=== PATIENT | male | born 1950 | race Caucasian/White ===

== ENCOUNTER 2016-09-08 11:02 | Inpatient (IN) | payer BC ==
[2016-09-07 10:30] VITALS: BMI 29.5
[~2016-09-08 11:02] MED LIST: LACTATED RINGERS 1,000 ML IV SCH
[2016-09-08] MEDS ORDERED: ALBUTEROL NEBULIZED 2.5 MG/3 ML INHALATION STA (11:30)
[2016-09-08] MEDS: LIDOCAINE 1% 20 ML VIAL (10MG/ML) FOR IV START INTRADERMA PRN (11:37)
[2016-09-08] MEDS ORDERED: LIDOCAINE 2% (PF) 20 MG/ML 10ML INHALATION ONE (11:45)
[2016-09-08] MEDS ORDERED: ATROPINE SULFATE 0.4 MG/ML 1 ML VIAL IM ONE (12:00)
[2016-09-08] MEDS ORDERED: PROPOFOL 10 MG/ML 20 ML VIAL IV ONE (12:04)
[2016-09-08] MEDS ORDERED: fentaNYL (PF) 50 MCG/ML 2 ML AMP ONE (12:04)
[2016-09-08] MEDS ORDERED: ESMOLOL 100 MG/10 ML VIAL ONE (12:04)
[2016-09-08] MEDS ORDERED: MIDAZOLAM 2 MG/2 ML VIAL ONE (12:04)
[2016-09-08] MEDS ORDERED: KETAMINE 10 MG/ML 20 ML VIAL ONE (12:04)
[2016-09-08] MEDS ORDERED: LIDOCAINE 1% INJ 10MG/ML (20 ML MDV) ONE (12:04)
[2016-09-08] MEDS ORDERED: LABETALOL 5 MG/ML VIAL MDV ONE (12:04)
[2016-09-08] MEDS ORDERED: LIDOCAINE 2% INJ 20 MG/ML INTRATRACH ONE (12:26)
[2016-09-08] MEDS: METOPROLOL TARTRATE 5 MG/5 ML VIAL IVP ONE ×2 (12:50→12:52)
[2016-09-08] MEDS: METOPROLOL TARTRATE 5 MG/5 ML VIAL IVP SCH ×5 (13:00→15:11)
--- NOTE | 2016-09-08 13:11 | XR ---
EXAMINATION TYPE: XR chest 1V portable DATE OF EXAM: 09/08/2016 1:03 PM Comparison: 07/08/2012 Clinical History: 65-year-old male status post left upper lobe bronchoscopic biopsy. Findings: Heart is mildly enlarged with mild elongation of the thoracic aorta. Pulmonary vasculature within nor mal limits. There is some patchy peripheral left basilar opacity that could represent atelectasis. No appreciable pneumothorax. Impression: 1. Cardiomegaly. 2. Some patchy left basilar atelectasis or early infiltrate. 3. No appreciable pneumothorax.
[2016-09-08] MEDS ORDERED: METOPROLOL TARTRATE 5 MG/5 ML VIAL IVP ONE (13:16)
[2016-09-08] MEDS ORDERED: ALBUTEROL NEBULIZED 2.5 MG/3 ML INHALATION PRN (14:47)
--- NOTE | 2016-09-08 14:47 | P.CRDCN ---
History of Present Illness Consult date: 09/08/16 Requesting physician: Margy Loyd Consult reason: atrial fibrillation Chief complaint: Atrial fibrillation History of present illness: This is a pleasant 65-year-old gentleman who follows with [facility] as his primary doctor, he has a history of hypertension, hyperlipidemia , nondiabetic, prior SVT, nicotine dependence, COPD, he was initially admitted as an outpatient to undergo a bronchoscopy with biopsy of a lung mass. Following the procedure patient was noted to go into atrial fibrillation with a rapid ventricular response. He was given IV beta candy, continue to be in A. fib with a heart rate in the 140 range. For this reason a cardiology consultation was requested. EKG, showed atrial fibrillation with rapid ventricular response. Blood pressure 120/60. Patient's home medications included Flomax 2 tablets daily, Zocor 40 mg daily, metoprolol tartrate 50 mg 1 tablet by mouth twice a day, Nexium, Symbicort, and albuterol. He states that he did not take his metoprolol tartrate at this morning as he was nothing by mouth for his procedure. Past Medical History Past Medical History: Cancer, COPD, GERD/Reflux, Hyperlipidemia, Pneumonia, Prostate Disorder Additional Past Medical History / Comment(s): hx:irregular heart rate, rt kidney only, lt kidney removed d/t cancer History of Any Multi-Drug Resistant Organisms: None Reported Additional Past Surgical History / Comment(s): skin graphs rt arm, lt kidney removed Past Anesthesia/Blood Transfusion Reactions: No Reported Reaction Past Psychological History: No Psychological Hx Reported Smoking Status: Former smoker Past Alcohol Use History: Rare Additional Past Alcohol Use History / Comment(s): smoker 30-35 years quit smoking 5 years ago 1ppd Past Drug Use History: None Reported - Past Family History Mother Additional Family Medical History / Comment(s): blood clots Father Family Medical History: Cancer Additional Family Medical History / Comment(s): lung cancer Sister(s) Family Medical History: Cancer Additional Family Medical History / Comment(s): lung cancer Medications and Allergies Home Medications Medication Instructions Recorded Confirmed Type Albuterol Sulfate [Proair Hfa] 2 puff INHALATION Q6H PRN 09/07/16 09/07/16 History Budesonide-Formot 160-4.5 Mcg 2 puff INHALATION Q6H 09/07/16 09/07/16 History [Symbicort 160-4.5 Mcg Inhaler] Esomeprazole Magnesium [NexIUM] 40 mg PO DAILY 09/07/16 09/08/16 History Metoprolol Tartrate [Lopressor] 50 mg PO BID 09/07/16 09/08/16 History Simvastatin [Zocor] 40 mg PO DAILY 09/07/16 09/08/16 History Tamsulosin HCl [Flomax] 2 tab PO DAILY 09/07/16 09/08/16 History Allergies Allergy/AdvReac Type Severity Reaction Status Date / Time No Known Allergies Allergy Verified 09/07/16 10:06 Physical Exam Vitals: Vital Signs Temp Pulse Pulse Resp BP Pulse Ox 09/08/16 14:00 140 H 16 139/70 98 09/08/16 13:45 145 H 16 115/61 98 09/08/16 13:30 137 H 20 136/87 98 09/08/16 13:15 140 H 20 136/87 97 09/08/16 13:00 135 H 20 137/111 97 09/08/16 12:39 97.7 F 136 H 20 137/78 98 09/08/16 11:58 60 09/08/16 11:45 56 L 09/08/16 11:20 97.2 F L 55 L 16 144/83 99 Intake and Output 09/07/16 09/08/16 09/08/16 22:59 06:59 14:59 Intake Total 1000 Balance 1000 Intake: IV 1000 PHYSICAL EXAMINATION: HEENT: Head is atraumatic, normocephalic. Pupils equal, round. Neck is supple. There is no elevated jugular venous pressure. HEART EXAMINATION: S1 and S2 irregular irregular a systolic murmur is heard. CHEST EXAMINATION: Lungs are clear to auscultation and precussion. No chest wall tenderness is noted on palpation or with deep breathing. ABDOMEN: Soft, nontender. Bowel sounds are heard. No organomegaly noted. EXTREMITIES: 2+ peripheral pulses with no evidence of peripheral edema and no calf tenderness noted. NEUROLOGIC patient is awake, alert and oriented -3. . Results Current Medications Generic Name Dose Route Start Last Admin Trade Name Freq PRN Reason Stop Dose Admin Lactated Ringer's 1,000 mls @ 20 mls/hr 09/08/16 07:02 09/08/16 11:35 Lactated Ringers IV 1,000 mls .Q24H [facility] Administration Lidocaine HCl 0.1 ml 09/08/16 07:02 09/08/16 11:37 .Xylocaine 1% Inj (10mg/Ml) For Iv Start INTRADERMA 0.1 ml PER PROTOCOL PRN Administration IV Start Intake and Output 09/07/16 09/08/16 09/08/16 22:59 06:59 14:59 Intake Total 1000 Balance 1000 Intake: IV 1000 EKG Interpretations (text) EKG shows atrial fibrillation with a rapid ventricular response Assessment and Plan Plan: Assessment and plan #1 atrial fibrillation with rapid ventricular response, new onset. #2 hyperlipidemia #3 hypertension #4 COPD #5 nicotine dependence Plan We will obtain an echocardiogram with Doppler study. Check free T4 and TSH. We will also start the patient on IV Cardizem drip along with IV heparin. It was explained to the patient and his who is a registered nurse that he may require anticoagulation for stroke prevention. Further recommendations will follow. DNP note has been reviewed, I agree with a documented findings and plan of care. Patient was seen and examined.
[2016-09-08] MEDS ORDERED: HEPARIN SODIUM,PORCINE 5,000 UNIT/ML 1 ML VIAL IV PRN (15:06)
[2016-09-08] MEDS ORDERED: SODIUM CHLORIDE 0.9% 500 ML IV ONE (15:09)
[2016-09-08] MEDS ORDERED: DILTIAZEM 125 MG in SODIUM CHLORIDE 0.9% 100 ML IV SCH (15:30)
[2016-09-08 15:38] LABS: Basophils # (A) 0.1 k/uL (0-0.2); Basophils % (A) 0 %; CH 29.4; CHCM 32.6; Eosinophils % (A) 0 %; HCT 45.5 % (39.0-53.0); HDW 2.41; HGB 14.3 gm/dL (13.0-17.5); Luc # (Auto) 0.12; Luc % (Auto) 1; Lymphocytes # (A) 2.8 k/uL (1.0-4.8); Lymphocytes % (A) 19 %; MCH 28.4 pg (25.0-35.0); MCHC 31.3 g/dL (31.0-37.0); MCV 90.6 fL (80.0-100.0); Mean Platelet Volume 8.4; Monocytes # (A) 0.9 k/uL (0-1.0); Monocytes % (A) 6 %; Neutrophils % (A) 74 %; RBC 5.02 m/uL (4.30-5.90); RDW 13.6 % (11.5-15.5); WBC 14.9 k/uL (3.8-10.6); WBC (Perox) 15.18
[2016-09-08] MEDS ORDERED: HEPARIN SODIUM,PORCINE/D5W PMX 25,000 UNIT in DEXTROSE/WATER 1 500ML.BAG IV SCH (15:45)
[2016-09-08] MEDS ORDERED: HEPARIN SODIUM,PORCINE 5,000 UNIT/ML 1 ML VIAL IV ONE (15:45)
[2016-09-08 15:51] LABS: Prothrombin Time 10.3 sec (9.0-12.0)
[2016-09-08] MEDS: SODIUM CHLORIDE 0.9% 1,000 ML IV SCH (15:52)
[2016-09-08 15:58] LABS: Partial Thromboplastin Time 19.3 sec (22.0-30.0)
[2016-09-08] MEDS ORDERED: DILTIAZEM 5 MG/ML 5 ML VIAL IVP STA (16:11)
[2016-09-08 19:40] LABS: RBC, Body Fluid 909000 /uL
[2016-09-08] MEDS: SYMBICORT 160-4.5 MCG INHALER INHALATION SCH (20:09)
[2016-09-08] MEDS: ATORVASTATIN 20 MG TAB PO SCH (21:01)
[2016-09-08] MEDS: METOPROLOL TARTRATE 50 MG TAB PO SCH (21:01)
--- NOTE | 2016-09-08 21:54 | PCN ---
DATE OF PROCEDURE: PROCEDURE PERFORMED: Bronchoscopy, airway examination, endobronchial biopsies left upper lobe, brushes left upper lobe and pull cytology, left upper lobe. PREOPERATIVE DIAGNOSIS: Lung cancer. POSTOPERATIVE DIAGNOSIS: Lung cancer. There was informed consent. There was universal timeout. The WASTE MANAGEMENT SPECIALIST provided IV conscious sedation. After the patient was adequately sedated and being fully monitored, the bronchoscope was inserted through the right nostril. It passed through the right nasopharynx into the oropharynx. The hypopharyngeal structures, including anterior commissure, true cords, false cords, arytenoids, piriform sinuses, right and left vallecula and epiglottis all appeared normal. After topicalization, bronchoscope was pushed through the glottic opening into the trachea. Trachea itself appeared normal. Tracheal raza was sharp. The right upper lobe and its 3 segments, the right middle lobe and its 2 segments, the right lower lobe and its 5 segments were all normal after topicalization. There were no endobronchial masses or tumors. The mucosa appeared normal. On the left side, there was a mass noted partially obstructing the left upper lobe entrance. This is where the sampling was done. The left lower lobe looked normal. The mucosa in this area that was macerated. There was some erythema and hyperemia. It bled easily. The tumor itself was very bloody and once we did brushes and did some biopsies, it did bleed significantly. The blood though was stopped before the bronchoscope was removed. We did brushes in this area. We did three endobronchial biopsies in this area. We did pool cytology in this area. I was trying to get some additional biopsies but with the bleeding, the vision of the lesion became difficult and I had to stop doing biopsies in this area. If by some chance we do not get a diagnosis, we will end up taking him to the operating room and doing this under general anesthesia. The patient was stable throughout the procedure. I ensured that there was hemostasis before the bronchoscope was withdrawn. The patient will be recovered in phase one. No additional recommendations are made.
[2016-09-09] MEDS: PANTOPRAZOLE 40 MG TABLET PO SCH (06:38)
[2016-09-09 06:50] LABS: Basophils % (A) 0 %; CH 29.5; CHCM 33.4; Eosinophils # (A) 0.1 k/uL (0-0.7); Eosinophils % (A) 1 %; HCT 44.2 % (39.0-53.0); HDW 2.37; HGB 14.6 gm/dL (13.0-17.5); Luc # (Auto) 0.16; Luc % (Auto) 1; Lymphocytes # (A) 3.7 k/uL (1.0-4.8); Lymphocytes % (A) 29 %; MCH 29.3 pg (25.0-35.0); MCV 88.8 fL (80.0-100.0); Mean Platelet Volume 8.1; Monocytes # (A) 0.8 k/uL (0-1.0); Monocytes % (A) 6 %; Neutrophils # (A) 7.7 k/uL (1.3-7.7); Neutrophils % (A) 62 %; RBC 4.98 m/uL (4.30-5.90); RDW 13.7 % (11.5-15.5); WBC 12.5 k/uL (3.8-10.6); WBC (Perox) 12.09
[2016-09-09] MEDS: SYMBICORT 160-4.5 MCG INHALER INHALATION SCH ×2 (08:08→19:46)
[2016-09-09 08:41] LABS: Anion Gap 9 mmol/L; Blood Urea Nitrogen 24 mg/dL (9-20); Calcium 9.1 mg/dL (8.4-10.2); Carbon Dioxide 22 mmol/L (22-30); Chloride 109 mmol/L (98-107); Glucose 93 mg/dL (74-99); Non-African American GFR(MDRD) 59 (>60 ml/min/1.73 sqM); Potassium 4.3 mmol/L (3.5-5.1); Sodium 140 mmol/L (137-145)
[2016-09-09] MEDS: TAMSULOSIN 0.4 MG CAP.ER.24H PO SCH (09:04)
[2016-09-09] MEDS: METOPROLOL TARTRATE 50 MG TAB PO SCH ×3 (09:04→21:29)
--- NOTE | 2016-09-09 10:19 | ECHOF ---
Referral Reason:afib MEASUREMENTS -------- HEIGHT: 188.0 cm WEIGHT: 104.3 kg BP: 139/70 RVIDd: 3.2 cm (< 3.3) IVSd: 1.3 cm (0.6 - 1.1) LVIDd: 4.6 cm (3.9 - 5.3) LVPWd: 1.2 cm (0.6 - 1.1) IVSs: 1.6 cm LVIDs: 3.3 cm LVPWs: 1.4 cm LA Diam: 3.3 cm (2.7 - 3.8) LAESV Index (A-L): 18.32 ml/m Ao Diam: 3.9 cm (2.0 - 3.7) AV Cusp: 2.4 cm (1.5 - 2.6) LA Diam: 3.2 cm (2.7 - 3.8) MV EXCURSION: 22.646 mm (> 18.000) MV EF SLOPE: 99 mm/s (70 - 150) EPSS: 0.5 cm RAP: 5.00 mmHg RVSP: 33.20 mmHg FINDINGS -------- Atrial fibrillation. This was a technically difficult study with suboptimal views. The left ventricular size is normal. There is mild concentric left ventricular hypertrophy. Overall left ventricular systolic function is normal with, an EF between 60 - 65 %. The right ventricle is normal in size and function. The left atrium is normal in size. Normal LA size by volume 22+/-6 ml/m2. The right atrium is normal in size. 1.5mg of Definity was utilized for enhancement of images Aortic valve is trileaflet and is mildly thickened. Normal appearing mitral valve. No mitral regurgitation. Mild tricuspid regurgitation present. Right ventricular systolic pressure is normal at < 35 mmHg. The pulmonic valve was not well visualized. The aortic root is dilated measuring 3.9cm. There is no pericardial effusion. CONCLUSIONS -------- 1. Atrial fibrillation. 2. Aortic valve is trileaflet and is mildly thickened. 3. Normal appearing mitral valve. 4. No mitral regurgitation. 5. Mild tricuspid regurgitation present. 6. Right ventricular systolic pressure is normal at < 35 mmHg. 7. The pulmonic valve was not well visualized. 8. The aortic root is dilated measuring 3.9cm. 9. There is no pericardial effusion. 10. This was a technically difficult study with suboptimal views. 11. The left ventricular size is normal. 12. There is mild concentric left ventricular hypertrophy. 13. Overall left ventricular systolic function is normal with, an EF between 60 - 65 %. 14. The right ventricle is normal in size and function. 15. Normal LA size by volume 22+/-6 ml/m2. 16. The right atrium is normal in size. 17. 1.5mg of Definity was utilized for enhancement of images PAPER TUBE CUTTER: Stephenie Dow RDCS
[2016-09-09] MEDS: APIXABAN 5 MG TAB PO SCH ×2 (12:50→21:29)
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
--- NOTE | 2016-09-09 14:35 | P.PN ---
Subjective Principal diagnosis: A. fib This is a pleasant 65-year-old gentleman who follows with Iona as his primary doctor, he has a history of hypertension, hyperlipidemia , nondiabetic, prior SVT, nicotine dependence, COPD, he was initially admitted as an outpatient to undergo a bronchoscopy with biopsy of a lung mass. Following the procedure patient was noted to go into atrial fibrillation with a rapid ventricular response. He was given IV beta candy, continue to be in A. fib with a heart rate in the 140 range. For this reason a cardiology consultation was requested. EKG, showed atrial fibrillation with rapid ventricular response. Patient was initiated on IV Cardizem and IV heparin yesterday. This morning continues to be in atrial fibrillation with a controlled ventricular response on 5 of Cardizem IV. Echo with Doppler study was performed which revealed an ejection fraction of 60-65%. IV Cardizem will be discontinued, patient's beta candy dose will be increased to 3 times a day. IV heparin will also be discontinued and patient will be started on Eliquis 5 mg one tablet by mouth twice a day. Objective - Vital Signs Vital signs: Vital Signs Temp 98.4 F 09/09/16 08:00 Pulse 84 09/09/16 08:00 Resp 18 09/09/16 08:00 BP 100/64 09/09/16 08:00 Pulse Ox 95 09/09/16 08:00 Intake & Output 09/08/16 09/09/16 09/09/16 18:59 06:59 18:59 Intake Total 1736 639.194 Output Total 680 Balance 1736 -40.806 Weight 102.5 kg Intake: IV 1500 510 Diltiazem 125 mg In 50 Sodium Chloride 0.9% 100 ml @ 5 MG/HR 5 mls/hr IV .Q24H [facility] Rx#:[id number] Heparin Sodium,Porcine/ 260 D5w Pmx 25,000 unit In Dextrose/Water 1 500ml. bag @ 9.6 UNITS/KG/HR 20. 03 mls/hr IV .Q24H [facility] Rx #:[id number] Sodium Chloride 0.9% 1, 200 000 ml @ 20 mls/hr IV . Q24H [facility] Rx#:[id number] Sodium Chloride 0.9% 500 500 ml @ 999 mls/hr IV .Q31M [facility] Rx#:[id number] Intake, IV Titration 129.194 Amount Heparin Sodium,Porcine/ 129.194 D5w Pmx 25,000 unit In Dextrose/Water 1 500ml. bag @ 9.6 UNITS/KG/HR 20. 03 mls/hr IV .Q24H [facility] Rx #:[id number] Oral 236 Output: Urine 680 Other: Voiding Method Toilet Toilet Toilet # Voids 1 1 - Exam PHYSICAL EXAMINATION: HEENT: Head is atraumatic, normocephalic. Pupils equal, round. Neck is supple. There is no elevated jugular venous pressure. HEART EXAMINATION: S1 and S2 irregular irregular a systolic murmur is heard. CHEST EXAMINATION: Lungs are clear to auscultation and precussion. No chest wall tenderness is noted on palpation or with deep breathing. ABDOMEN: Soft, nontender. Bowel sounds are heard. No organomegaly noted. EXTREMITIES: 2+ peripheral pulses with no evidence of peripheral edema and no calf tenderness noted. NEUROLOGIC patient is awake, alert and oriented -3. . - Labs CBC & Chem 7: 09/09/16 06:29 09/09/16 06:29 Labs: Abnormal Lab Results - Last 24 Hours (Table) 09/08/16 09/08/16 09/09/16 Range/Units 15:23 15:23 06:29 WBC 14.9 H 12.5 H (3.8-10.6) k/uL Neutrophils # 11.0 H (1.3-7.7) k/uL APTT 19.3 L (22.0-30.0) sec Chloride (98-107) mmol/L BUN (9-20) mg/dL 09/09/16 09/09/16 Range/Units 06:29 06:29 WBC (3.8-10.6) k/uL Neutrophils # (1.3-7.7) k/uL APTT 43.0 H (22.0-30.0) sec Chloride 109 H (98-107) mmol/L BUN 24 H (9-20) mg/dL Assessment and Plan Plan: Assessment and plan #1 atrial fibrillation with rapid ventricular response, new onset. 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 #7 right adrenal mass #8 prior left renal cancer status post nephrectomy. #9 history of SVT. Plan We will discontinue the IV Cardizem, increase her beta candy dose to 3 times a day. Discontinue IV heparin and start the patient on Eliquis 5 mg one tablet by mouth twice a day. Once patient is discharged home from the hospital follow- up appointment will be made with Dr. Cueva in the office. DNP note has been reviewed, I agree with a documented findings and plan of care. Patient was seen and examined.
[2016-09-09] MEDS: SODIUM CHLORIDE 0.9% 1,000 ML IV SCH (20:32)
[2016-09-09] MEDS: ATORVASTATIN 20 MG TAB PO SCH (21:29)
[2016-09-10 06:40] LABS: Basophils # (A) 0.1 k/uL (0-0.2); Basophils % (A) 0 %; CH 29.4; CHCM 33.2; Eosinophils # (A) 0.1 k/uL (0-0.7); Eosinophils % (A) 1 %; HCT 48.3 % (39.0-53.0); HDW 2.28; HGB 15.6 gm/dL (13.0-17.5); Luc # (Auto) 0.15; Luc % (Auto) 1; Lymphocytes % (A) 18 %; MCH 28.7 pg (25.0-35.0); MCHC 32.3 g/dL (31.0-37.0); MCV 88.9 fL (80.0-100.0); Mean Platelet Volume 7.4; Monocytes # (A) 0.9 k/uL (0-1.0); Monocytes % (A) 8 %; Neutrophils # (A) 8.2 k/uL (1.3-7.7); Neutrophils % (A) 72 %; RBC 5.43 m/uL (4.30-5.90); RDW 13.4 % (11.5-15.5); WBC 11.4 k/uL (3.8-10.6); WBC (Perox) 11.69
[2016-09-10] MEDS: PANTOPRAZOLE 40 MG TABLET PO SCH (06:40)
[2016-09-10] MEDS: DILTIAZEM 125 MG in SODIUM CHLORIDE 0.9% 100 ML IV SCH ×2 (08:34→21:19)
[2016-09-10] MEDS: METOPROLOL TARTRATE 50 MG TAB PO SCH ×3 (08:34→20:42)
[2016-09-10] MEDS: SYMBICORT 160-4.5 MCG INHALER INHALATION SCH ×2 (08:38→20:10)
[2016-09-10] MEDS: TAMSULOSIN 0.4 MG CAP.ER.24H PO SCH (08:41)
[2016-09-10] MEDS: APIXABAN 5 MG TAB PO SCH ×2 (08:41→20:42)
--- NOTE | 2016-09-10 13:32 | P.PN ---
Subjective Principal diagnosis: Acute atrial fibrillation with RVR This is a very pleasant 65-year-old gentleman who follows with Dr. Monson is his primary care physician. He has a history of hyperlipidemia, gastroesophageal reflux, chronic obstructive pulmonary disease with a previous history of chronic nicotine addiction for 30-35 years however quit 5 years ago, renal cancer status post left nephrectomy. He was recently seen by Dr. Connolly while an inpatient at [facility] after presenting there for shortness of breath, cough and congestion. Unfortunately Scan revealed suspected bronchogenic carcinoma as well as a right adrenal mass. Interventional radiology had declined to perform an FNA of the right adrenal mass and the patient was subsequently discharged. He presented here yesterday to undergo bronchoscopy with biopsies of the left upper lobe by Dr. Connolly which was completed. Postoperative chest x-ray revealed evidence of cardiomegaly and some patchy left basilar atelectasis. No appreciable pneumothorax. After the procedure the patient developed atrial fibrillation with a rapid ventricular response and was subsequently admitted here as an inpatient. He has been seen and evaluated by cardiology. He was maintained on both Cardizem and heparin drips. Two-dimensional echocardiogram did not reveal impaired left ventricular systolic function, EF 55-60%. No significant right heart strain. Thyroid screen negative. The patient is seen today on the selective care unit in consultation. He is awake and alert in no acute distress. He denies any shortness of breath, cough or congestion. No hemoptysis. No chest pain, palpitations lightheadedness or dizziness. He is actually anxious to go home. Patient was reevaluated today on 09/10/2016, he is doing well, his atrial fibrillation is better controlled, however remains on Cardizem. And he will be switched to oral medication. Patient is not yet cleared for discharge by cardiology, his pathology report came back nondiagnostic, and I believe Dr. Connolly is planning to schedule the patient for another bronchoscopy in the operating room with general anesthesia. Mostly because he had significant bleeding when he had the last biopsy. We'll try to schedule that to be done sometime mid next week and Dr. Connolly will be weight and balance control agent next week. Clinically the patient is feeling well, and he is hoping he could be discharged home today or tomorrow. Labs were reviewed including a normal CBC and relatively normal electrolytes. Creatinine is 1.24. Objective - Vital Signs Vital signs: Vital Signs Temp 97.5 F L 01/20/17 11:48 Pulse 77 09/10/16 11:48 Resp 18 09/10/16 11:48 BP 102/71 09/10/16 11:48 Pulse Ox 97 09/10/16 11:48 Intake & Output 09/09/16 09/10/16 09/10/16 18:59 06:59 18:59 Intake Total 1275 600 298 Output Total 600 Balance 675 600 298 Weight 101.5 kg Intake: IV 455 Diltiazem 125 mg In 35 Sodium Chloride 0.9% 100 ml @ 5 MG/HR 5 mls/hr IV .Q24H [facility] Rx#:[id number] Heparin Sodium,Porcine/ 140 D5w Pmx 25,000 unit In Dextrose/Water 1 500ml. bag @ 9.6 UNITS/KG/HR 20. 03 mls/hr IV .Q24H [facility] Rx #:[id number] Sodium Chloride 0.9% 1, 280 000 ml @ 20 mls/hr IV . Q24H [facility] Rx#:[id number] Oral 820 600 298 Output: Urine 600 Other: Voiding Method Toilet Toilet # Voids 3 2 - Exam GENERAL EXAM: Alert, active, comfortable in no apparent distress. HEAD: Normocephalic. EYES: Normal reaction of pupils, equal size. NOSE: Clear with pink turbinates. THROAT: No erythema or exudates. NECK: No masses, no JVD. CHEST: No chest wall deformity. LUNGS: Equal air entry with crackles in left posterior base.. CVS: S1 and S2 normal with no audible murmurs, irregular rhythm. ABDOMEN: No hepatosplenomegaly, normal bowel sounds, no guarding or rigidity. SPINE: No scoliosis or deformity SKIN: No rashes CENTRAL NERVOUS SYSTEM: No focal deficits, tone is normal in all 4 extremities. Extremities: There is no significant peripheral edema. No clubbing, no cyanosis. Peripheral pulses are intact. - Labs CBC & Chem 7: 09/10/16 06:06 09/09/16 06:29 Labs: Abnormal Lab Results - Last 24 Hours (Table) 09/10/16 Range/Units 06:06 WBC 11.4 H (3.8-10.6) k/uL Neutrophils # 8.2 H (1.3-7.7) k/uL Assessment and Plan Plan: #1 New-onset atrial fibrillation with rapid ventricular response initially requiring a Cardizem drip and was anticoagulated with heparin. He's been seen and evaluated by cardiology. He'll be maintained on beta blockers and Eliquis. 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 Status post biopsy done by Dr. Connolly which was nondiagnostic, hence the patient will be scheduled for repeat bronchoscopy under general anesthesia in the OR because of the previous bleeding issue. We will try to arrange for this to be done sometime next week while Dr. Connolly's weight and balance control agent. However the patient will need to hold blood thinners 2-3 days prior to bronchoscopy and biopsy. #3 Right adrenal mass. #4 Previous left renal cancer status post nephrectomy. #5 Chronic obstructive pulmonary disease, currently inactive and stable. Maintained on Symbicort and albuterol. #6 Chronic tobacco dependence of 30+ pack per day smoking history however quit approximately 5 years ago. #7 Benign prostatic hypertrophy. #8 Hyperlipidemia. #9 Gastric esophageal reflux disease. #10 History of supraventricular tachycardia. Recommendation: Patient will be cleared for discharge once he is cleared by cardiology, and we will make arrangements for the patient to have repeat bronchoscopy in the operating room by Dr. Connolly next week. Time with Patient: Less than 30
--- NOTE | 2016-09-10 15:05 | P.PN ---
Subjective This is a 65-year-old male. His primary care physician is Dr. Monson. He has a past medical history for chronic kidney disease stage II, renal cancer, hyperlipidemia, gastroesophageal reflux disease, benign prostatic hypertrophy, paroxysmal supraventricular tachycardia. Patient was recently hospitalized at [facility] through August 31 at which time he was treated for emphysema and found to have a mass in the left lung and adrenal mass right side both suspicious for malignancy. He was treated for COPD exacerbation and pneumonia. He was discharged on prednisone taper and Levaquin as well as Symbicort and albuterol inhaler. He had a follow-up with Dr. Connolly and subsequently scheduled for bronchoscopy as an outpatient. Patient came into [facility] for this procedure. Yesterday he underwent bronchoscopy, endobronchial biopsies of the left upper lobe, brushes left upper lobe and cytology left upper lobe. Patient developed atrial fibrillation with rapid ventricular response response and was transferred to the selective care unit. He has been seen by freight car inspector and started on heparin drip and Cardizem drip. At this time, patient is in atrial fibrillation with a controlled rate. Denies having any palpitations but states he has been on metoprolol for palpitations and PSVT. Echocardiogram reveals atrial fibrillation, mild tricuspid regurgitation, mild concentric left ventricular hypertrophy, EF 60-65%. He does state he is scheduled for a PET scan on Tuesday. 09/10: Patient's rate in atrial fibrillation was controlled and this morning he went back into atrial fibrillation with RVR. He is back on Cardizem drip. Pathology report from bronchus washings are nondiagnostic of mass lesion or malignancy. Transbronchial biopsy of the left upper lobe shows benign bronchial mucosa with submucosal chronic and minimal acute inflammation. Objective - Vital Signs Vital signs: Vital Signs Temp 97.0 F L 09/10/16 04:00 Pulse 119 H 09/10/16 04:00 Resp 18 09/10/16 04:00 BP 105/69 09/10/16 04:00 Pulse Ox 99 09/10/16 04:00 Intake & Output 09/09/16 09/10/16 09/10/16 18:59 06:59 18:59 Intake Total 1275 600 Output Total 600 Balance 675 600 Weight 101.5 kg Intake: IV 455 Diltiazem 125 mg In 35 Sodium Chloride 0.9% 100 ml @ 5 MG/HR 5 mls/hr IV .Q24H [facility] Rx#:[id number] Heparin Sodium,Porcine/ 140 D5w Pmx 25,000 unit In Dextrose/Water 1 500ml. bag @ 9.6 UNITS/KG/HR 20. 03 mls/hr IV .Q24H [facility] Rx #:[id number] Sodium Chloride 0.9% 1, 280 000 ml @ 20 mls/hr IV . Q24H [facility] Rx#:[id number] Oral 820 600 Output: Urine 600 Other: Voiding Method Toilet # Voids 3 2 - Exam Gen: This is a 65-year-old male. Patient is resting comfortably appears to be in no acute distress. HEENT: Head is atraumatic, normocephalic. Pupils equal, round. Sclerae is anicteric. NECK: Supple. No JVD. No lymphadenopathy. No thyromegaly. LUNGS: Clear to auscultation. No wheezes or rhonchi. No intercostal retractions. HEART: Irregularly irregular rate and rhythm. Systolic murmur. ABDOMEN: Soft. Bowel sounds are present. No masses. No tenderness. EXTREMITIES: No pedal edema. No calf tenderness. Dorsalis pedis +2 bilaterally. NEUROLOGICAL: Patient is awake, alert and oriented x3. Cranial nerves 2 through 12 are grossly intact. - Labs CBC & Chem 7: 09/10/16 06:06 09/09/16 06:29 Labs: Abnormal Lab Results - Last 24 Hours (Table) 09/10/16 Range/Units 06:06 WBC 11.4 H (3.8-10.6) k/uL Neutrophils # 8.2 H (1.3-7.7) k/uL Assessment and Plan Plan: 1. New onset atrial fibrillation with rapid ventricular response. Patient was initially on Cardizem drip. Metoprolol 50 mg twice daily increased to 3 times daily. Eliquis is being started. Cardiology consult is appreciated. Echocardiogram as above 2. Left lung mass status post outpatient bronchoscopy. Pathology reports as above. 3. Right adrenal mass, patient to follow-up with hematology. 4. History of renal carcinoma status post left nephrectomy 5-6 years ago under the care of Dr. Watkins not requiring chemotherapy, stable. 5. Gastroesophageal reflux disease and gastrointestinal prophylaxis. Continue Protonix. 6. Hyperlipidemia. Continue Lipitor. 7. Benign prostatic hypertrophy. Continue Flomax. 8. COPD, stable without exacerbation. Continue Symbicort and albuterol. 9. History of PSVT, on metoprolol 50 mg which was increased to 3 times daily. 10. DVT prophylaxis. Eliquis. Patient will be admitted to the hospital for a minimum of 2 night stay. Discharge plan: Return home Impression and plan of care have been directed as dictated by the signing physician. Jeanne Solorio nurse practitioner acting as scribe for signing physician. Time with Patient: Greater than 30
[2016-09-10] MEDS ORDERED: ACETAMINOPHEN TAB 325 MG TAB PO PRN (16:21)
[2016-09-10] MEDS: SODIUM CHLORIDE 0.9% 1,000 ML IV SCH (20:38)
[2016-09-10] MEDS: ATORVASTATIN 20 MG TAB PO SCH (20:42)
[2016-09-11] MEDS: PANTOPRAZOLE 40 MG TABLET PO SCH (06:12)
[2016-09-11 06:46] LABS: Basophils % (A) 0 %; CH 29.6; CHCM 33.8; Eosinophils # (A) 0.1 k/uL (0-0.7); Eosinophils % (A) 1 %; HCT 48.8 % (39.0-53.0); HDW 2.28; HGB 16.1 gm/dL (13.0-17.5); Luc # (Auto) 0.11; Luc % (Auto) 1; Lymphocytes # (A) 1.9 k/uL (1.0-4.8); Lymphocytes % (A) 17 %; MCH 28.9 pg (25.0-35.0); MCHC 32.9 g/dL (31.0-37.0); MCV 87.8 fL (80.0-100.0); Mean Platelet Volume 7.5; Monocytes # (A) 0.8 k/uL (0-1.0); Monocytes % (A) 7 %; Neutrophils # (A) 8.3 k/uL (1.3-7.7); Neutrophils % (A) 74 %; RBC 5.55 m/uL (4.30-5.90); RDW 13.4 % (11.5-15.5); WBC 11.3 k/uL (3.8-10.6); WBC (Perox) 11.47
[2016-09-11] MEDS: SYMBICORT 160-4.5 MCG INHALER INHALATION SCH ×2 (08:00→20:09)
[2016-09-11] MEDS: METOPROLOL TARTRATE 50 MG TAB PO SCH ×3 (08:48→21:03)
[2016-09-11] MEDS ORDERED: DEXTROSE 5% IN WATER 100 ML with AMIODARONE 300 MG IV ONE (10:18)
--- NOTE | 2016-09-11 11:13 | P.PN ---
Subjective Principal diagnosis: A. fib This is a pleasant 65-year-old gentleman who follows with [facility] as his primary doctor, he has a history of hypertension, hyperlipidemia , nondiabetic, prior SVT, nicotine dependence, COPD, he was initially admitted as an outpatient to undergo a bronchoscopy with biopsy of a lung mass. Following the procedure patient was noted to go into atrial fibrillation with a rapid ventricular response. He was given IV beta candy, continue to be in A. fib with a heart rate in the 140 range. For this reason a cardiology consultation was requested. EKG, showed atrial fibrillation with rapid ventricular response. patient was put back on IV Cardizem yesterday, because of rapid rate. with activity patient continues to go up into the 140 range. Echo with Doppler study was performed which revealed an ejection fraction of 60- 65%. beta candy dose has been increased to 100 mg by mouth twice a day. We will also give the patient a bolus of amiodarone, 300 mg. Eliquis has been placed on hold by pulmonary for procedures placed on Tuesday. we will wean off the IV Cardizem drip. Objective - Vital Signs Vital signs: Vital Signs Temp 96.9 F L 09/11/16 08:00 Pulse 93 09/11/16 08:00 Resp 18 09/11/16 08:00 BP 122/86 09/11/16 08:00 Pulse Ox 93 L 09/11/16 08:00 Intake & Output 09/10/16 09/11/16 09/11/16 18:59 06:59 18:59 Intake Total 1294 125 Output Total 500 Balance 1294 -375 Weight 101 kg Intake: IV 45 Sodium Chloride 0.9% 1, 45 000 ml @ 20 mls/hr IV . Q24H [facility] Rx#:[id number] Intake, IV Titration 65 125 Amount Diltiazem 125 mg In 125 Sodium Chloride 0.9% 100 ml @ 10 MG/HR 10 mls/hr IV .[id number] MARIANNE Rx#: [id number] Sodium Chloride 0.9% 1, 65 000 ml @ 20 mls/hr IV . Q24H MARIANNE Rx#:[id number] Oral 1184 Output: Urine 500 Other: Voiding Method Toilet Toilet Toilet - Exam PHYSICAL EXAMINATION: HEENT: Head is atraumatic, normocephalic. Pupils equal, round. Neck is supple. There is no elevated jugular venous pressure. HEART EXAMINATION: S1 and S2 irregular irregular a systolic murmur is heard. CHEST EXAMINATION: Lungs are clear to auscultation and precussion. No chest wall tenderness is noted on palpation or with deep breathing. ABDOMEN: Soft, nontender. Bowel sounds are heard. No organomegaly noted. EXTREMITIES: 2+ peripheral pulses with no evidence of peripheral edema and no calf tenderness noted. NEUROLOGIC patient is awake, alert and oriented -3. . - Labs CBC & Chem 7: 09/11/16 06:04 09/09/16 06:29 Labs: Abnormal Lab Results - Last 24 Hours (Table) 09/11/16 Range/Units 06:04 WBC 11.3 H (3.8-10.6) k/uL Neutrophils # 8.3 H (1.3-7.7) k/uL Assessment and Plan Plan: Assessment and plan #1 atrial fibrillation with rapid ventricular response, new onset. 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 #7 right adrenal mass #8 prior left renal cancer status post nephrectomy. #9 history of SVT. Plan We will discontinue the IV Cardizem, increase beta candy to 100 mg by mouth twice a day. Give the patient and 300 mg IV amiodarone bolus. DNP note has been reviewed, I agree with a documented findings and plan of care. Patient was seen and examined.
--- NOTE | 2016-09-11 12:07 | PN ---
INTERVAL HISTORY: The patient appears to be hemodynamically stable, but has frequent episodes of tachycardia when he is ambulating or doing any activities even in bed. His heart rate went up to 160. The patient currently is denying chest pain, shortness of breath, nausea, vomiting, abdominal pain, dizziness,( ), or blurry vision. PHYSICAL EXAMINATION: VITAL SIGNS: Heart rate as mentioned above, temperature 96.9, heart rate is 93 at this point, saturation is 93% on room air, breathing rate18, blood pressure 122/86. LUNGS: Diminished, but clear. HEART: Normal S1, S2, irregularly irregular. ABDOMEN: Soft, no tenderness. Positive bowel sounds in all 4 quadrants. PSYCH: Alert and oriented x3. NEURO: No focal deficit. IMAGING AND LABS: This morning, hemoglobin is stable at 16, white blood count 11 and platelet count within acceptable range. ASSESSMENT AND PLAN: 1. New onset atrial fibrillation with rapid ventricular response. Patient currently seems to be having heart rate controlled. I would like to wait on cardiology evaluation regarding changing his heart rate medication as the patient is very sensitive to any exertion and his heart rate goes high immediately. Will continue current anticoagulation and patient seems to be tolerating well, Eliquis. 2. Left upper lobe endobronchial tumor suspicious for bronchogenic carcinoma. Patient received biopsy by Dr. Connolly when he developed atrial fibrillation on the OR table. The patient was to follow up outpatient regarding his biopsy results. 3. Right adrenal mass that could be metastasis from his lung origin. 4. History of renal cancer, status post left nephrectomy 5 years ago. 5. Chronic obstructive pulmonary disease seems to be compensated at this point. 6. Hypertension under fair control. Prognosis ( ) .
--- NOTE | 2016-09-11 12:29 | P.PN ---
Subjective Principal diagnosis: Acute atrial fibrillation with RVR This is a very pleasant 65-year-old gentleman who follows with Dr. Monson is his primary care physician. He has a history of hyperlipidemia, gastroesophageal reflux, chronic obstructive pulmonary disease with a previous history of chronic nicotine addiction for 30-35 years however quit 5 years ago, renal cancer status post left nephrectomy. He was recently seen by Dr. Connolly while an inpatient at [facility] after presenting there for shortness of breath, cough and congestion. Unfortunately Scan revealed suspected bronchogenic carcinoma as well as a right adrenal mass. Interventional radiology had declined to perform an FNA of the right adrenal mass and the patient was subsequently discharged. He presented here yesterday to undergo bronchoscopy with biopsies of the left upper lobe by Dr. Connolly which was completed. Postoperative chest x-ray revealed evidence of cardiomegaly and some patchy left basilar atelectasis. No appreciable pneumothorax. After the procedure the patient developed atrial fibrillation with a rapid ventricular response and was subsequently admitted here as an inpatient. He has been seen and evaluated by cardiology. He was maintained on both Cardizem and heparin drips. Two-dimensional echocardiogram did not reveal impaired left ventricular systolic function, EF 55-60%. No significant right heart strain. Thyroid screen negative. The patient is seen today on the selective care unit in consultation. He is awake and alert in no acute distress. He denies any shortness of breath, cough or congestion. No hemoptysis. No chest pain, palpitations lightheadedness or dizziness. He is actually anxious to go home. Patient was reevaluated today on 09/10/2016, he is doing well, his atrial fibrillation is better controlled, however remains on Cardizem. And he will be switched to oral medication. Patient is not yet cleared for discharge by cardiology, his pathology report came back nondiagnostic, and I believe Dr. Connolly is planning to schedule the patient for another bronchoscopy in the operating room with general anesthesia. Mostly because he had significant bleeding when he had the last biopsy. We'll try to schedule that to be done sometime mid next week and Dr. Connolly will be meals on wheels driver next week. Clinically the patient is feeling well, and he is hoping he could be discharged home today or tomorrow. Labs were reviewed including a normal CBC and relatively normal electrolytes. Creatinine is 1.24. Patient was reevaluated today on 09/11/2016, patient is doing well, switched to oral medications for his atrial fibrillation, patient is likely to be discharged home in the next 24-48 hours, and today I have explained to him plans to repeat bronchoscopy by Dr. Connolly next Tuesday. This will be done under general anesthesia. And it would be done in the operating room. In the meantime the patient continues to do well, he is relatively asymptomatic. And I explained to him that once he is cleared by cardiology for discharge, it's fine with us for discharge. Objective - Vital Signs Vital signs: Vital Signs Temp 97 F L 09/11/16 12:00 Pulse 90 09/11/16 12:00 Resp 18 09/11/16 12:00 BP 100/65 09/11/16 12:00 Pulse Ox 97 09/11/16 12:00 Intake & Output 09/10/16 09/11/16 09/11/16 18:59 06:59 18:59 Intake Total 1294 125 Output Total 500 Balance 1294 -375 Weight 101 kg Intake: IV 45 Sodium Chloride 0.9% 1, 45 000 ml @ 20 mls/hr IV . Q24H [facility] Rx#:[id number] Intake, IV Titration 65 125 Amount Diltiazem 125 mg In 125 Sodium Chloride 0.9% 100 ml @ 10 MG/HR 10 mls/hr IV .[id number] [facility]NE Rx#: [id number] Sodium Chloride 0.9% 1, 65 000 ml @ 20 mls/hr IV . Q24H MARIANNE Rx#:[id number] Oral 1184 Output: Urine 500 Other: Voiding Method Toilet Toilet Toilet - Exam GENERAL EXAM: Alert, active, comfortable in no apparent distress. HEAD: Normocephalic. EYES: Normal reaction of pupils, equal size. NOSE: Clear with pink turbinates. THROAT: No erythema or exudates. NECK: No masses, no JVD. CHEST: No chest wall deformity. LUNGS: Equal air entry with crackles in left posterior base.. CVS: S1 and S2 normal with no audible murmurs, irregular rhythm. ABDOMEN: No hepatosplenomegaly, normal bowel sounds, no guarding or rigidity. SPINE: No scoliosis or deformity SKIN: No rashes CENTRAL NERVOUS SYSTEM: No focal deficits, tone is normal in all 4 extremities. Extremities: There is no significant peripheral edema. No clubbing, no cyanosis. Peripheral pulses are intact. - Labs CBC & Chem 7: 09/11/16 06:04 09/09/16 06:29 Labs: Abnormal Lab Results - Last 24 Hours (Table) 09/11/16 Range/Units 06:04 WBC 11.3 H (3.8-10.6) k/uL Neutrophils # 8.3 H (1.3-7.7) k/uL Assessment and Plan Plan: #1 New-onset atrial fibrillation with rapid ventricular response initially requiring a Cardizem drip and was anticoagulated with heparin. He's been seen and evaluated by cardiology. He'll be maintained on beta blockers and Eliquis. 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 Status post biopsy done by Dr. Connolly which was nondiagnostic, hence the patient will be scheduled for repeat bronchoscopy under general anesthesia in the OR because of the previous bleeding issue. We will try to arrange for this to be done sometime next week while Dr. Connolly's meals on wheels driver. However the patient will need to hold blood thinners 2-3 days prior to bronchoscopy and biopsy. #3 Right adrenal mass. #4 Previous left renal cancer status post nephrectomy. #5 Chronic obstructive pulmonary disease, currently inactive and stable. Maintained on Symbicort and albuterol. #6 Chronic tobacco dependence of 30+ pack per day smoking history however quit approximately 5 years ago. #7 Benign prostatic hypertrophy. #8 Hyperlipidemia. #9 Gastric esophageal reflux disease. #10 History of supraventricular tachycardia. Recommendation: Patient will be cleared for discharge once he is cleared by cardiology, we already made arrangements for him to undergo repeat bronchoscopy in the operating room next Tuesday. This will be done by Dr. Connolly. Time with Patient: Less than 30
[2016-09-11] MEDS: DILTIAZEM 125 MG in SODIUM CHLORIDE 0.9% 100 ML IV SCH ×2 (15:49→21:01)
[2016-09-11] MEDS: SODIUM CHLORIDE 0.9% 1,000 ML IV SCH (15:50)
[2016-09-11] MEDS: ATORVASTATIN 20 MG TAB PO SCH (21:03)
[2016-09-12 06:18] LABS: Basophils # (A) 0.1 k/uL (0-0.2); Basophils % (A) 1 %; CH 29.4; CHCM 33.5; Eosinophils # (A) 0.2 k/uL (0-0.7); Eosinophils % (A) 1 %; HCT 45.9 % (39.0-53.0); HDW 2.27; HGB 15.1 gm/dL (13.0-17.5); Luc # (Auto) 0.17; Luc % (Auto) 2; Lymphocytes # (A) 2.1 k/uL (1.0-4.8); Lymphocytes % (A) 18 %; MCH 28.9 pg (25.0-35.0); MCHC 32.9 g/dL (31.0-37.0); Mean Platelet Volume 7.5; Monocytes # (A) 0.9 k/uL (0-1.0); Monocytes % (A) 8 %; Neutrophils # (A) 7.9 k/uL (1.3-7.7); Neutrophils % (A) 70 %; RBC 5.22 m/uL (4.30-5.90); RDW 13.3 % (11.5-15.5); WBC 11.3 k/uL (3.8-10.6); WBC (Perox) 11.45
[2016-09-12] MEDS: PANTOPRAZOLE 40 MG TABLET PO SCH (06:33)
[2016-09-12] MEDS: SYMBICORT 160-4.5 MCG INHALER INHALATION SCH ×2 (08:10→20:45)
[2016-09-12] MEDS: METOPROLOL TARTRATE 50 MG TAB PO SCH ×2 (08:44→20:28)
[2016-09-12] MEDS: TAMSULOSIN 0.4 MG CAP.ER.24H PO SCH (08:46)
--- NOTE | 2016-09-12 12:10 | P.PN ---
Subjective Principal diagnosis: Acute atrial fibrillation with RVR This is a very pleasant 65-year-old gentleman who follows with Dr. Monson is his primary care physician. He has a history of hyperlipidemia, gastroesophageal reflux, chronic obstructive pulmonary disease with a previous history of chronic nicotine addiction for 30-35 years however quit 5 years ago, renal cancer status post left nephrectomy. He was recently seen by Dr. Connolly while an inpatient at [facility] after presenting there for shortness of breath, cough and congestion. Unfortunately Scan revealed suspected bronchogenic carcinoma as well as a right adrenal mass. Interventional radiology had declined to perform an FNA of the right adrenal mass and the patient was subsequently discharged. He presented here yesterday to undergo bronchoscopy with biopsies of the left upper lobe by Dr. Connolly which was completed. Postoperative chest x-ray revealed evidence of cardiomegaly and some patchy left basilar atelectasis. No appreciable pneumothorax. After the procedure the patient developed atrial fibrillation with a rapid ventricular response and was subsequently admitted here as an inpatient. He has been seen and evaluated by cardiology. He was maintained on both Cardizem and heparin drips. Two-dimensional echocardiogram did not reveal impaired left ventricular systolic function, EF 55-60%. No significant right heart strain. Thyroid screen negative. The patient is seen today on the selective care unit in consultation. He is awake and alert in no acute distress. He denies any shortness of breath, cough or congestion. No hemoptysis. No chest pain, palpitations lightheadedness or dizziness. He is actually anxious to go home. Patient was reevaluated today on 09/10/2016, he is doing well, his atrial fibrillation is better controlled, however remains on Cardizem. And he will be switched to oral medication. Patient is not yet cleared for discharge by cardiology, his pathology report came back nondiagnostic, and I believe Dr. Connolly is planning to schedule the patient for another bronchoscopy in the operating room with general anesthesia. Mostly because he had significant bleeding when he had the last biopsy. We'll try to schedule that to be done sometime mid next week and Dr. Connolly will be feather boner next week. Clinically the patient is feeling well, and he is hoping he could be discharged home today or tomorrow. Labs were reviewed including a normal CBC and relatively normal electrolytes. Creatinine is 1.24. Patient was reevaluated today on 09/11/2016, patient is doing well, switched to oral medications for his atrial fibrillation, patient is likely to be discharged home in the next 24-48 hours, and today I have explained to him plans to repeat bronchoscopy by Dr. Connolly next Tuesday. This will be done under general anesthesia. And it would be done in the operating room. In the meantime the patient continues to do well, he is relatively asymptomatic. And I explained to him that once he is cleared by cardiology for discharge, it's fine with us for discharge. Reevaluated today on 09/12/2016, patient continues to have intermittent episodes of A. fib and RVR. He was not clear for discharge by cardiology, hence the plan is to keep him over the next couple of days, and he will likely have his bronchoscopy while inpatient. Hopefully by then his atrial fibrillation will be better controlled, and he'll be cleared for bronchoscopy and biopsy in the operating room under general anesthesia by Dr. Connolly. Overall the patient is doing well, and is relatively asymptomatic. Objective - Vital Signs Vital signs: Vital Signs Temp 97.3 F L 09/12/16 08:46 Pulse 114 H 09/12/16 08:46 Resp 18 09/12/16 08:46 BP 136/81 09/12/16 08:46 Pulse Ox 96 09/12/16 08:46 Intake & Output 09/11/16 09/12/16 09/12/16 18:59 06:59 18:59 Intake Total 1151 0 Balance 1151 0 Weight 100.3 kg Intake: IV 460 0 Sodium Chloride 0.9% 1, 460 0 000 ml @ 20 mls/hr IV . Q24H [facility]IANNE Rx#:[id number] Intake, IV Titration 391 Amount Dextrose 5% in Water 100 106 ml @ 106 mls/hr IV .Q1H ONE with Amiodarone 300 mg Rx#:[id number] Diltiazem 125 mg In 125 Sodium Chloride 0.9% 100 ml @ 10 MG/HR 10 mls/hr IV .[id number] MARIANNE Rx#: [id number] Sodium Chloride 0.9% 1, 160 000 ml @ 20 mls/hr IV . Q24H MARIANNE Rx#:[id number] Oral 300 Other: Voiding Method Toilet Toilet Toilet # Voids 1 - Exam GENERAL EXAM: Alert, active, comfortable in no apparent distress. HEAD: Normocephalic. EYES: Normal reaction of pupils, equal size. NOSE: Clear with pink turbinates. THROAT: No erythema or exudates. NECK: No masses, no JVD. CHEST: No chest wall deformity. LUNGS: Equal air entry with crackles in left posterior base.. CVS: S1 and S2 normal with no audible murmurs, irregular rhythm. ABDOMEN: No hepatosplenomegaly, normal bowel sounds, no guarding or rigidity. SPINE: No scoliosis or deformity SKIN: No rashes CENTRAL NERVOUS SYSTEM: No focal deficits, tone is normal in all 4 extremities. Extremities: There is no significant peripheral edema. No clubbing, no cyanosis. Peripheral pulses are intact. - Labs CBC & Chem 7: 09/12/16 06:00 09/09/16 06:29 Labs: Abnormal Lab Results - Last 24 Hours (Table) 09/12/16 Range/Units 06:00 WBC 11.3 H (3.8-10.6) k/uL Neutrophils # 7.9 H (1.3-7.7) k/uL Assessment and Plan Plan: #1 New-onset atrial fibrillation with rapid ventricular response initially requiring a Cardizem drip and was anticoagulated with heparin. He's been seen and evaluated by cardiology. He'll be maintained on beta blockers #2 Left upper lobe endobronchial tumor suspicious for bronchogenic carcinoma. Status post biopsy done by Dr. Connolly which was nondiagnostic, hence the patient will be scheduled for repeat bronchoscopy under general anesthesia in the OR because of the previous bleeding issue. We will try to arrange for this to be done sometime next week while Dr. Connolly's feather boner. However the patient will need to hold blood thinners 2-3 days prior to bronchoscopy and biopsy. #3 Right adrenal mass. #4 Previous left renal cancer status post nephrectomy. #5 Chronic obstructive pulmonary disease, currently inactive and stable. Maintained on Symbicort and albuterol. #6 Chronic tobacco dependence of 30+ pack per day smoking history however quit approximately 5 years ago. #7 Benign prostatic hypertrophy. #8 Hyperlipidemia. #9 Gastric esophageal reflux disease. #10 History of supraventricular tachycardia. Recommendation: Continue treatment plan as per cardiology, we are still planning bronchoscopy in the operating room on Tuesday by Dr. Connolly. Hold on any anticoagulation therapy for now. Time with Patient: Less than 30
--- NOTE | 2016-09-12 17:24 | P.PN ---
Subjective Patient seems to be doing well. His resting heart rates are within normal limits but when he walks around his heart rates increase. He denies any chest discomfort no undue shortness of breath he is awaiting repeat biopsy under general anesthesia On examination he is afebrile 97.3, also rate ranges from 8214 beats a minute Blood pressure 124/78 mmHg Heart sounds are irregular but normal Breath sounds are reduced bilaterally no rhonchi no crackles Abdomen is soft nontender 70s warm no edema Impression Atrial fibrillation Reasonably well controlled heart rates on metoprolol Plan Add low-dose digoxin today Proceed with biopsy under general anesthesia. His atrial fibrillation rate 70s are well controlled at rest Anticoagulation is on hold Objective - Vital Signs Vital signs: Vital Signs Temp 97.3 F L 09/12/16 08:46 Pulse 93 09/12/16 12:00 Resp 17 09/12/16 12:00 BP 124/78 09/12/16 12:00 Pulse Ox 96 09/12/16 12:00 Intake & Output 09/11/16 09/12/16 09/12/16 18:59 06:59 18:59 Intake Total 1151 0 820 Balance 1151 0 820 Weight 100.3 kg Intake: IV 460 0 20 Sodium Chloride 0.9% 1, 460 0 20 000 ml @ 20 mls/hr IV . Q24H MARIANNE Rx#:[id number] Intake, IV Titration 391 Amount Dextrose 5% in Water 100 106 ml @ 106 mls/hr IV .Q1H ONE with Amiodarone 300 mg Rx#:[id number] Diltiazem 125 mg In 125 Sodium Chloride 0.9% 100 ml @ 10 MG/HR 10 mls/hr IV .[id number] MARIANNE Rx#: [id number] Sodium Chloride 0.9% 1, 160 000 ml @ 20 mls/hr IV . Q24H MARIANNE Rx#:[id number] Oral 300 800 Other: Voiding Method Toilet Toilet Toilet # Voids 1 3 - Labs CBC & Chem 7: 09/12/16 06:00 09/09/16 06:29 Labs: Abnormal Lab Results - Last 24 Hours (Table) 09/12/16 Range/Units 06:00 WBC 11.3 H (3.8-10.6) k/uL Neutrophils # 7.9 H (1.3-7.7) k/uL
[2016-09-12] MEDS: DIGOXIN 125 MCG TAB PO SCH (17:53)
[2016-09-12] MEDS: DILTIAZEM 125 MG in SODIUM CHLORIDE 0.9% 100 ML IV SCH (19:26)
[2016-09-12] MEDS: ATORVASTATIN 20 MG TAB PO SCH (20:28)
--- NOTE | 2016-09-12 20:32 | PN ---
INTERVAL HISTORY: The patient continues to be hemodynamically stable. No major events reports overnight. The patient currently is denying chest pain, shortness of breath, nausea and vomiting, abdominal pain, dizziness or lightheadedness. PHYSICAL EXAMINATION: VITAL SIGNS: 97.3, heart rate 94, respiratory rate 18, blood pressure 136/81, saturation is 96% on room air. LUNGS: Diminished bilaterally. HEART: S1. S2. ABDOMEN: Soft, no tenderness. Bowel sounds positive in all four quadrants. EXTREMITIES: Lower extremities no edema. PSYCHIATRY: Alert and oriented times three. Imaging and labs: CBC this morning reviewed and stable. ASSESSMENT AND PLAN: 1. New onset atrial fibrillation with rapid ventricular response. Patient was on Eliquis which was discontinued yesterday for bronchoscopy to be repeated. I would like to start patient on heparin drip at this point as he was taken off Eliquis completely and the heart rate is still fluctuating and I would like to continue heparin drip and hold this prior to the procedure when the patient is going to bronchoscopy. 2. Recent diagnosis of lung mass and adrenal mass. Patient's first bronchoscopy was not conclusive and is going to have another bronchoscopy by Dr. Connolly in the next 24 to 48 hours. Blood thinner will be held a few hours prior to the procedure per pulmonary recommendation. 3. Chronic obstructive pulmonary disease, seems to be compensated at this point. 4. Hypertension, seems to be under fair control. 5. Prognosis is guarded.
[2016-09-13 06:34] LABS: Basophils # (A) 0.1 k/uL (0-0.2); Basophils % (A) 1 %; CH 29.6; CHCM 33.7; Eosinophils # (A) 0.2 k/uL (0-0.7); Eosinophils % (A) 2 %; HCT 47.6 % (39.0-53.0); HDW 2.28; HGB 15.8 gm/dL (13.0-17.5); Luc % (Auto) 2; Lymphocytes # (A) 2.1 k/uL (1.0-4.8); Lymphocytes % (A) 21 %; MCH 29.2 pg (25.0-35.0); MCHC 33.1 g/dL (31.0-37.0); Mean Platelet Volume 7.8; Monocytes # (A) 0.9 k/uL (0-1.0); Monocytes % (A) 9 %; Neutrophils # (A) 6.5 k/uL (1.3-7.7); Neutrophils % (A) 66 %; RBC 5.41 m/uL (4.30-5.90); RDW 13.4 % (11.5-15.5)
[2016-09-13] MEDS: PANTOPRAZOLE 40 MG TABLET PO SCH (06:42)
[2016-09-13] MEDS: DIGOXIN 125 MCG TAB PO SCH (08:30)
[2016-09-13] MEDS: TAMSULOSIN 0.4 MG CAP.ER.24H PO SCH (08:30)
[2016-09-13] MEDS: METOPROLOL TARTRATE 50 MG TAB PO SCH ×2 (08:30→20:09)
[2016-09-13] MEDS: SYMBICORT 160-4.5 MCG INHALER INHALATION SCH ×2 (09:52→21:45)
[2016-09-13 11:37] LABS: Glucose,Whole Blood 118 mg/dL (75-99)
--- NOTE | 2016-09-13 14:13 | P.PN ---
Subjective This is a 65-year-old male. His primary care physician is Dr. Monson. He has a past medical history for chronic kidney disease stage II, renal cancer, hyperlipidemia, gastroesophageal reflux disease, benign prostatic hypertrophy, paroxysmal supraventricular tachycardia. Patient was recently hospitalized at [facility] through August 31 at which time he was treated for emphysema and found to have a mass in the left lung and adrenal mass right side both suspicious for malignancy. He was treated for COPD exacerbation and pneumonia. He was discharged on prednisone taper and Levaquin as well as Symbicort and albuterol inhaler. He had a follow-up with Dr. Connolly and subsequently scheduled for bronchoscopy as an outpatient. Patient came into [facility] for this procedure. Yesterday he underwent bronchoscopy, endobronchial biopsies of the left upper lobe, brushes left upper lobe and cytology left upper lobe. Patient developed atrial fibrillation with rapid ventricular response response and was transferred to the selective care unit. He has been seen by insurance sales manager and started on heparin drip and Cardizem drip. At this time, patient is in atrial fibrillation with a controlled rate. Denies having any palpitations but states he has been on metoprolol for palpitations and PSVT. Echocardiogram reveals atrial fibrillation, mild tricuspid regurgitation, mild concentric left ventricular hypertrophy, EF 60-65%. He does state he is scheduled for a PET scan on Tuesday. 09/10: Patient's rate in atrial fibrillation was controlled and this morning he went back into atrial fibrillation with RVR. He is back on Cardizem drip. Pathology report from bronchus washings are nondiagnostic of mass lesion or malignancy. Transbronchial biopsy of the left upper lobe shows benign bronchial mucosa with submucosal chronic and minimal acute inflammation. 09/13: Patient continued to have episodes of age and fibrillation with rapid ventricular response and was on amiodarone bolus on Tuesday. Metoprolol was increased to 100 mg twice daily and digoxin added. Eliquis is held as patient is having a bronchoscopy on Tuesday. Objective - Vital Signs Vital signs: Vital Signs Temp 96.9 F L 09/13/16 08:00 Pulse 76 09/13/16 08:00 Resp 18 09/13/16 04:00 BP 123/67 09/13/16 08:00 Pulse Ox 97 09/13/16 08:00 Intake & Output 0109/13/16 09/13/16 18:59 06:59 18:59 Intake Total 820 500 318 Output Total 950 Balance -130 500 318 Weight 100.2 kg Intake: IV 20 20 0.9% NS FLUSH 10 mL 20 Sodium Chloride 0.9% 1, 20 000 ml @ 20 mls/hr IV . Q24H [facility] Rx#:[id number] Oral 800 480 318 Output: Urine 950 Other: Voiding Method Toilet # Voids 3 - Exam Gen: This is a 65-year-old male. Patient is resting comfortably appears to be in no acute distress. HEENT: Head is atraumatic, normocephalic. Pupils equal, round. Sclerae is anicteric. NECK: Supple. No JVD. No lymphadenopathy. No thyromegaly. LUNGS: Clear to auscultation. No wheezes or rhonchi. No intercostal retractions. HEART: Irregularly irregular rate and rhythm. Systolic murmur. ABDOMEN: Soft. Bowel sounds are present. No masses. No tenderness. EXTREMITIES: No pedal edema. No calf tenderness. Dorsalis pedis +2 bilaterally. NEUROLOGICAL: Patient is awake, alert and oriented x3. Cranial nerves 2 through 12 are grossly intact. - Labs CBC & Chem 7: 09/13/16 06:09 09/09/16 06:29 Assessment and Plan Plan: 1. New onset atrial fibrillation with rapid ventricular response. Patient was initially on Cardizem drip. Metoprolol 100 mg twice daily and digoxin 125 g daily. Eliquis is being started. Cardiology consult is appreciated. Echocardiogram as above 2. Left lung mass status post outpatient bronchoscopy. Pathology reports as above. Bronchoscopy under general anesthesia on Tuesday because of previous bleeding issue and pathology reports were inconclusive. 3. Right adrenal mass, patient to follow-up with hematology. 4. History of renal carcinoma status post left nephrectomy 5-6 years ago under the care of Dr. Watkins not requiring chemotherapy, stable. 5. Gastroesophageal reflux disease and gastrointestinal prophylaxis. Continue Protonix. 6. Hyperlipidemia. Continue Lipitor. 7. Benign prostatic hypertrophy. Continue Flomax. 8. COPD, stable without exacerbation. Continue Symbicort and albuterol. 9. History of PSVT, on metoprolol 50 mg which was increased to 3 times daily. 10. DVT prophylaxis. Eliquis. Patient will be admitted to the hospital for a minimum of 2 night stay. Discharge plan: Return home Impression and plan of care have been directed as dictated by the signing physician. Jeanne Solorio nurse practitioner acting as scribe for signing physician. Time with Patient: Greater than 30
--- NOTE | 2016-09-13 14:40 | P.PN ---
Subjective Principal diagnosis: A. fib This is a pleasant 65-year-old gentleman who follows with Iona as his primary doctor, he has a history of hypertension, hyperlipidemia , nondiabetic, prior SVT, nicotine dependence, COPD, he was initially admitted as an outpatient to undergo a bronchoscopy with biopsy of a lung mass. Following the procedure patient was noted to go into atrial fibrillation with a rapid ventricular response. He was given IV beta candy, continue to be in A. fib with a heart rate in the 140 range. For this reason a cardiology consultation was requested. EKG, showed atrial fibrillation with rapid ventricular response. Patient was in atrial fibrillation, heart rate up into the 120s with ambulation. Bronchoscopy scheduled today. Patient will need to be reinitiated on anticoagulation after his bronch. Objective - Vital Signs Vital signs: Vital Signs Temp 96.9 F L 09/13/16 08:00 Pulse 82 09/13/16 12:00 Resp 18 09/13/16 04:00 BP 100/54 09/13/16 12:00 Pulse Ox 94 L 09/13/16 12:00 Intake & Output 09/12/16 09/13/16 09/13/16 18:59 06:59 18:59 Intake Total 820 500 728 Output Total 950 Balance -130 500 728 Weight 100.2 kg Intake: IV 20 20 10 0.9% NS FLUSH 10 mL 20 10 Sodium Chloride 0.9% 1, 20 0 000 ml @ 20 mls/hr IV . Q24H [facility] Rx#:[id number] Oral 800 480 718 Output: Urine 950 Other: Voiding Method Toilet # Voids 3 1 - Exam PHYSICAL EXAMINATION: HEENT: Head is atraumatic, normocephalic. Pupils equal, round. Neck is supple. There is no elevated jugular venous pressure. HEART EXAMINATION: S1 and S2 irregular irregular a systolic murmur is heard. CHEST EXAMINATION: Lungs are clear to auscultation and precussion. No chest wall tenderness is noted on palpation or with deep breathing. ABDOMEN: Soft, nontender. Bowel sounds are heard. No organomegaly noted. EXTREMITIES: 2+ peripheral pulses with no evidence of peripheral edema and no calf tenderness noted. NEUROLOGIC patient is awake, alert and oriented -3. . - Labs CBC & Chem 7: 09/13/16 06:09 09/09/16 06:29 Labs: Abnormal Lab Results - Last 24 Hours (Table) 09/13/16 Range/Units 11:35 POC Glucose (mg/dL) 118 H (75-99) mg/dL Assessment and Plan Plan: Assessment and plan #1 atrial fibrillation with rapid ventricular response, new onset. 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 #7 right adrenal mass #8 prior left renal cancer status post nephrectomy. #9 history of SVT. Plan We'll continue the patient on his current medications. Once the bronchoscopy is indicated patient will need to be reinitiated on anticoagulation. DNP note has been reviewed, I agree with a documented findings and plan of care. Patient was seen and examined.
--- NOTE | 2016-09-13 15:15 | P.PN ---
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 The patient had a bronched on the last week and subsequent to that developed acute atrial fibrillation was admitted to the hospital. He scheduled for follow bronchoscopy to do bronchoscopy tomorrow under general anesthesia in the operating room. We'll doing him this way because on the first bronched, after the first brushes and first biopsy, the patient bled significantly and we didn' t really have good visualization or localization of her sampling. I am and request the pathology be in the room tomorrow so that we do our size, they can look at the size and determine whether or not we need to proceed any further. Anyway the patient slept pretty stable. He's been off his blood thinner for at least 3 days now. Objective - Vital Signs Vital signs: Vital Signs Temp 96.9 F L 09/13/16 08:00 Pulse 82 09/13/16 12:00 Resp 18 09/13/16 04:00 BP 100/54 09/13/16 12:00 Pulse Ox 94 L 09/13/16 12:00 Intake & Output 09/12/16 09/13/16 09/13/16 18:59 06:59 18:59 Intake Total 820 500 728 Output Total 950 Balance -130 500 728 Weight 100.2 kg Intake: IV 20 20 10 0.9% NS FLUSH 10 mL 20 10 Sodium Chloride 0.9% 1, 20 0 000 ml @ 20 mls/hr IV . Q24H [facility] Rx#:[id number] Oral 800 480 718 Output: Urine 950 Other: Voiding Method Toilet # Voids 3 1 - Exam No acute distress, oriented 3. HEENT examination is grossly unremarkable. Next memory is are moist. There are no oral lesions. Neck supple. Full range of motion. No adenopathy. Cardiovascular examination reveals regular rhythm rate. S1-S2 normal. Lungs are clear breath sounds are equal. No wheezes rhonchi or crackles. Abdomen soft bowel sounds are heard. Extremities are intact. - Labs CBC & Chem 7: 09/13/16 06:09 09/09/16 06:29 Labs: Abnormal Lab Results - Last 24 Hours (Table) 09/13/16 Range/Units 11:35 POC Glucose (mg/dL) 118 H (75-99) mg/dL Assessment and Plan (1) Lung mass Status: Acute (2) Atrial fibrillation Status: Acute Plan: Plan The patient will have bronchoscopy under general anesthesia in the operating room tomorrow. Hopefully we'll sampled the left sided lesion and get a diagnosis. The patient could probably go home afterwards and he could resume his Lori course. No discharge recommendations are made. We'll make sure we also seem in the office for follow-up. We will have pathology standing by tomorrow. Time with Patient: Less than 30
[2016-09-13] MEDS: ATORVASTATIN 20 MG TAB PO SCH (20:09)
[2016-09-14] MEDS: PANTOPRAZOLE 40 MG TABLET PO SCH (05:52)
[2016-09-14 06:59] LABS: Basophils # (A) 0.1 k/uL (0-0.2); Basophils % (A) 1 %; CH 29.6; CHCM 33.9; Eosinophils # (A) 0.2 k/uL (0-0.7); Eosinophils % (A) 2 %; HCT 45.2 % (39.0-53.0); HDW 2.33; Luc # (Auto) 0.25; Luc % (Auto) 3; Lymphocytes # (A) 2.1 k/uL (1.0-4.8); Lymphocytes % (A) 22 %; MCHC 33.2 g/dL (31.0-37.0); MCV 87.5 fL (80.0-100.0); Mean Platelet Volume 7.7; Monocytes # (A) 0.8 k/uL (0-1.0); Monocytes % (A) 9 %; Neutrophils # (A) 6.2 k/uL (1.3-7.7); Neutrophils % (A) 64 %; RBC 5.17 m/uL (4.30-5.90); RDW 13.3 % (11.5-15.5); WBC 9.6 k/uL (3.8-10.6); WBC (Perox) 9.35
[2016-09-14] MEDS: METOPROLOL TARTRATE 50 MG TAB PO SCH (08:31)
[2016-09-14] MEDS: TAMSULOSIN 0.4 MG CAP.ER.24H PO SCH (08:31)
[2016-09-14] MEDS: DIGOXIN 125 MCG TAB PO SCH (08:31)
[2016-09-14] MEDS: SYMBICORT 160-4.5 MCG INHALER INHALATION SCH (10:00)
--- NOTE | 2016-09-14 10:19 | P.PN ---
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 The patient had a bronched on the last week and subsequent to that developed acute atrial fibrillation was admitted to the hospital. He scheduled for follow bronchoscopy to do bronchoscopy tomorrow under general anesthesia in the operating room. We'll doing him this way because on the first bronched, after the first brushes and first biopsy, the patient bled significantly and we didn' t really have good visualization or localization of her sampling. I am and request the pathology be in the room tomorrow so that we do our size, they can look at the size and determine whether or not we need to proceed any further. Anyway the patient slept pretty stable. He's been off his blood thinner for at least 3 days now. Progress note dated 09/14/2016 The patient will have his bronchoscopy today. It was done be done in the amount operating room with general anesthesia. The reason for this is because the last time I did a bronchoscopy in the endoscopy suite, the patient significant bleeding with tube secured my ability to get good sampling. We'll also have pathologies standby to see whether or not the smears obtained from the brush are positive for malignancy which will forego the need to do any additional biopsies. He's feeling pretty well about this. He probably can be discharged home later today on S factor X a inhibitor. Other than that things are well. We'll see him in the office in follow-up. Objective - Vital Signs Vital signs: Vital Signs Temp 97.0 F L 09/14/16 08:00 Pulse 52 L 09/14/16 08:00 Resp 17 09/14/16 04:00 BP 135/84 09/14/16 08:00 Pulse Ox 99 09/14/16 08:00 Intake & Output 09/13/16 09/14/16 09/14/16 18:59 06:59 18:59 Intake Total 964 Balance 964 Weight 100.7 kg Intake: IV 10 0.9% NS FLUSH 10 mL 10 Sodium Chloride 0.9% 1, 0 000 ml @ 20 mls/hr IV . Q24H [facility] Rx#:[id number] Oral 954 Other: Voiding Method Toilet Toilet # Voids 1 1 - Exam No acute distress, oriented 3. HEENT examination is grossly unremarkable. Next memory is are moist. There are no oral lesions. Neck supple. Full range of motion. No adenopathy. Cardiovascular examination reveals regular rhythm rate. S1-S2 normal. Lungs are clear breath sounds are equal. No wheezes rhonchi or crackles. Abdomen soft bowel sounds are heard. Extremities are intact. - Labs CBC & Chem 7: 09/14/16 06:16 09/09/16 06:29 Labs: Abnormal Lab Results - Last 24 Hours (Table) 09/13/16 Range/Units 11:35 POC Glucose (mg/dL) 118 H (75-99) mg/dL Assessment and Plan (1) Lung mass Status: Acute (2) Atrial fibrillation Status: Acute Plan: Plan The patient will have bronchoscopy under general anesthesia in the operating room tomorrow. Hopefully we'll sampled the left sided lesion and get a diagnosis. The patient could probably go home afterwards and he could resume his Eliquis. No discharge recommendations are made. We'll make sure we also seem in the office for follow-up. We will have pathology standing by tomorrow. Plan dated 09/14/2016 The patient will have bronchoscopy today. He'll be done in the operating room with general anesthesia. Possible discharge later today. The patient can resume his factor X a inhibitor today. The patient will have follow-up with me in the office. Time with Patient: Less than 30
[2016-09-14] MEDS ORDERED: LACTATED RINGERS 1,000 ML IV ONE ×2 (11:49→12:15)
[2016-09-14] MEDS: LIDOCAINE 1% 20 ML VIAL (10MG/ML) FOR IV START INTRADERMA PRN (11:56)
[2016-09-14] MEDS ORDERED: ATROPINE SULFATE 0.4 MG/ML 1 ML VIAL IM ONE (12:00)
[2016-09-14] MEDS ORDERED: LIDOCAINE 2% (PF) 20 MG/ML 10ML INHALATION ONE (12:15)
[2016-09-14] MEDS ORDERED: Pre Op ABX Message 1 EACH MISC MISCELLANE ONE ×2 (12:15)
[2016-09-14] MEDS ORDERED: ALBUTEROL NEB (CONC) 2.5 MG/0.5 ML INHALATION ONE (12:15)
[2016-09-14] MEDS ORDERED: MIDAZOLAM 2 MG/2 ML VIAL ONE (12:21)
[2016-09-14] MEDS ORDERED: PHENYLEPHRINE-0.9% NACL SYG 1 MG/10 ML SYRINGE ONE (12:21)
[2016-09-14] MEDS ORDERED: fentaNYL (PF) 50 MCG/ML 2 ML AMP ONE (12:21)
[2016-09-14] MEDS ORDERED: SUCCINYLCHOLINE CHLORIDE 100 MG/5 ML SYR IV ONE (12:21)
[2016-09-14] MEDS ORDERED: PROPOFOL 10 MG/ML 20 ML VIAL IV ONE (12:21)
[2016-09-14] MEDS ORDERED: LIDOCAINE 1% INJ 10MG/ML (20 ML MDV) ONE (12:21)
[2016-09-14 13:27] VITALS: TEMP 97.2
[2016-09-14 13:48] VITALS: RESP 16
--- NOTE | 2016-09-14 14:19 | XR ---
EXAMINATION TYPE: XR chest 1V portable DATE OF EXAM: 09/14/2016 2:03 PM Comparison: 09/08/2016 Clinical History: 65-year-old male POST BRONCHOSCOPY WITH BIOPSY Findings: Heart remains upper limits of normal in size. New hazy densities in the mid to lower left lung. [facility] ionable edge seen below the inferior posterior third rib cortical margin. Right lung and pleural spac e appear clear. Impression: 1. Questionable edge at the left apex could represent a small 10% left apical pneumothorax. Follow-up recommended. 2. New hazy left mid and lower lung densities likely postprocedural change, probably some atelectasis , edema, or hemorrhage related to the biopsy.
--- NOTE | 2016-09-14 14:38 | P.PN ---
Subjective Principal diagnosis: A. fib This is a pleasant 65-year-old gentleman who follows with Iona as his primary doctor, he has a history of hypertension, hyperlipidemia , nondiabetic, prior SVT, nicotine dependence, COPD, he was initially admitted as an outpatient to undergo a bronchoscopy with biopsy of a lung mass. Following the procedure patient was noted to go into atrial fibrillation with a rapid ventricular response. Patient was initiated on Eliquis which was placed on hold because the patient was scheduled today to undergo bronchoscopy in the operating room by Dr. Connolly. Patient was seen and examined after returning from the bronchoscopy, he has converted to normal sinus rhythm. Feeling well overall. Eliquis has now been resumed. He will be discharged home today to follow-up with Dr. Cueva in the office post discharge. Objective - Vital Signs Vital signs: Vital Signs Temp 97.2 F L 09/14/16 13:20 Pulse 79 09/14/16 13:45 Resp 16 09/14/16 13:45 BP 95/72 09/14/16 13:45 Pulse Ox 93 L 09/14/16 13:45 Intake & Output 09/13/16 09/14/16 09/14/16 18:59 06:59 18:59 Intake Total 964 750 Balance 964 750 Weight 100.7 kg Intake: IV 10 750 0.9% NS FLUSH 10 mL 10 Sodium Chloride 0.9% 1, 0 000 ml @ 20 mls/hr IV . Q24H [facility] Rx#:[id number] Oral 954 Other: Voiding Method Toilet Toilet # Voids 1 1 1 # Bowel Movements 0 - Exam PHYSICAL EXAMINATION: HEENT: Head is atraumatic, normocephalic. Pupils equal, round. Neck is supple. There is no elevated jugular venous pressure. HEART EXAMINATION: S1 and S2 normal CHEST EXAMINATION: Lungs are clear to auscultation and precussion. No chest wall tenderness is noted on palpation or with deep breathing. ABDOMEN: Soft, nontender. Bowel sounds are heard. No organomegaly noted. EXTREMITIES: 2+ peripheral pulses with no evidence of peripheral edema and no calf tenderness noted. NEUROLOGIC patient is awake, alert and oriented -3. . - Labs CBC & Chem 7: 09/14/16 06:16 09/09/16 06:29 Assessment and Plan Plan: Assessment and plan #1 atrial fibrillation with rapid ventricular response, new onset. Currently now in normal sinus rhythm. 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 #7 right adrenal mass #8 prior left renal cancer status post nephrectomy. #9 history of SVT. Plan Eliquis has been resumed. Patient may be able to be discharged home from cardiology's perspective, a follow-up appointment will be made with Dr. Cueva in the office post discharge. DNP note has been reviewed, I agree with a documented findings and plan of care. Patient was seen and examined.
[2016-09-14 14:53] VITALS: BP 100/68; PULSE 75
--- NOTE | 2016-09-14 16:07 | P.DS ---
Providers Date of admission: 09/08/16 12:39 Expected date of discharge: 09/14/16 Attending physician: Lorrie Monson Consults: 09/08/16 13:23 Consult Physician Urgent Consulting Provider: Erik Cespedes Consult Reason/Comments: AFIB RVR Do you want consulting provider notified?: Already Contacted 09/09/16 11:28 Consult Physician Urgent Consulting Provider: Bartolome Connolly Consult Reason/Comments: post bronch Do you want consulting provider notified?: Already Contacted Primary care physician: Lorrie Monson [facility] Course: This is a 65-year-old male. His primary care physician is Dr. Monson. He has a past medical history for chronic kidney disease stage II, renal cancer, hyperlipidemia, gastroesophageal reflux disease, benign prostatic hypertrophy, paroxysmal supraventricular tachycardia. Patient was recently hospitalized at [facility] through August 31 at which time he was treated for emphysema and found to have a mass in the left lung and adrenal mass right side both suspicious for malignancy. He was treated for COPD exacerbation and pneumonia. He was discharged on prednisone taper and Levaquin as well as Symbicort and albuterol inhaler. He had a follow-up with Dr. Connolly and subsequently scheduled for bronchoscopy as an outpatient. Patient came into [facility] for this procedure. Yesterday he underwent bronchoscopy, endobronchial biopsies of the left upper lobe, brushes left upper lobe and cytology left upper lobe. Patient developed atrial fibrillation with rapid ventricular response response and was transferred to the selective care unit. He has been seen by search and rescue officer and started on heparin drip and Cardizem drip. At this time, patient is in atrial fibrillation with a controlled rate. Denies having any palpitations but states he has been on metoprolol for palpitations and PSVT. Echocardiogram reveals atrial fibrillation, mild tricuspid regurgitation, mild concentric left ventricular hypertrophy, EF 60-65%. He does state he is scheduled for a PET scan on Tuesday. 09/10: Patient's rate in atrial fibrillation was controlled and this morning he went back into atrial fibrillation with RVR. He is back on Cardizem drip. Pathology report from bronchus washings are nondiagnostic of mass lesion or malignancy. Transbronchial biopsy of the left upper lobe shows benign bronchial mucosa with submucosal chronic and minimal acute inflammation. 09/13: Patient continued to have episodes of age and fibrillation with rapid ventricular response and was on amiodarone bolus on Tuesday. Metoprolol was increased to 100 mg twice daily and digoxin added. Eliquis is held as patient is having a bronchoscopy on Tuesday. 09/14: Patient is scheduled for bronchoscopy today. Patient will be set up for discharge following this as long as he remains stable. Heart rate is improved. Patient will be resumed on eliquis. Discharge diagnoses: 1. New onset atrial fibrillation with rapid ventricular response. 2. Left lung mass status post outpatient bronchoscopy. 3. Right adrenal mass, patient to follow-up with hematology. 4. History of renal carcinoma status post left nephrectomy 5-6 years ago under the care of Dr. Wilson not requiring chemotherapy, stable. 5. Gastroesophageal reflux disease. 6. Hyperlipidemia. 7. Benign prostatic hypertrophy. 8. COPD, stable without exacerbation. 9. History of PSVT. Discharge plan: Return home Impression and plan of care have been directed as dictated by the signing physician. Jeanne Solorio nurse practitioner acting as scribe for signing physician. Patient Condition at Discharge: Good Plan - Discharge Summary New Discharge Prescriptions: Apixaban [Eliquis] 5 mg PO BID #1 tab Digoxin [Lanoxin] 125 mcg PO DAILY #30 tab Metoprolol Tartrate [Lopressor] 100 mg PO BID #120 tab Discharge Medication List Albuterol Sulfate [Proair Hfa] 2 puff INHALATION Q6H PRN 09/07/16 [History] Budesonide-Formot 160-4.5 Mcg [Symbicort 160-4.5 Mcg Inhaler] 2 puff INHALATION Q6H 09/07/16 [History] Esomeprazole Magnesium [NexIUM] 40 mg PO DAILY 09/07/16 [History] Simvastatin [Zocor] 40 mg PO DAILY 09/07/16 [History] Tamsulosin HCl [Flomax] 2 tab PO DAILY 09/07/16 [History] Apixaban [Eliquis] 5 mg PO BID #1 tab 09/14/16 [Rx] Digoxin [Lanoxin] 125 mcg PO DAILY #30 tab 09/14/16 [Rx] Metoprolol Tartrate [Lopressor] 100 mg PO BID #120 tab 09/14/16 [Rx] Follow up Appointment(s)/Referral(s): Lorrie Monson MD [Primary Care Provider] - 09/22/16 3:00 pm Erik Cespedes MD [STAFF PHYSICIAN] - 09/21/16 1:15 pm Bartolome Connolly DO [Doctor of Osteopathic Medicine] - 09/23/16 10:00 am Patient Instructions/Handouts: *Surgery [facility] - Bronchoscopy Discharge Instructions, Atrial Fibrillation (DC) Discharge Disposition: HOME SELF-CARE
--- NOTE | 2016-09-15 05:36 | PCN ---
DATE OF PROCEDURE: PROCEDURE: Bronchoscopy, airway examination, therapeutic lavage, BAL, brushes left upper lobe, biopsies left upper lobe, washes, left upper lobe. PREOPERATIVE DIAGNOSIS: Lung cancer. POSTOPERATIVE DIAGNOSIS: Lung cancer. The patient's procedure was done in the operating room under general anesthesia. Dr. Ricks and Tala Schneider provided the sedation and general anesthesia. The procedure was done by myself and Dr. Vergara. There was informed consent. There was universal timeout. The patient's procedure was done in Room #2. After the patient was adequately sedated and anesthetized. After the endotracheal tube has been inserted by anesthesia, after the patient was stabilized, the bronchoscope was inserted through the bronchoscope adapter through the endotracheal tube. It passed out to the endotracheal tube into lung. We focused primarily on the left side. The lesion that I had previous seen was still present in the left upper lobe. It was an endobronchial lesion. We did biopsies, brushes and washes in this area. We also did some endobronchial biopsies in the left upper lobe. The patient tolerated the procedure well. There was some bleeding, which stopped spontaneously. We did have pathology present. They looked at the sampling that we gave them but could not make a firm diagnosis. We did provide them additional material to look at in the laboratory. The patient will be awakened and recovered. There was no immediate complication.
== END 2016-09-14 16:33 | disposition home or self-care (01) | DRG 309 ==
LOC: ORWHC2ENDO 11:02 → 6SEL 12:39
PROVIDERS: ADMIT Internal Medicine; ATTEND Internal Medicine
PROC: 0B988ZX Drainage of Left Upper Lobe Bronchus, Via Natural or Artificial Opening Endoscopic, Diagnostic (ICD-10-PCS; principal; 2016-09-08 12:00)
PROC: 0BB88ZX Excision of Left Upper Lobe Bronchus, Via Natural or Artificial Opening Endoscopic, Diagnostic (ICD-10-PCS; 2016-09-08 12:00)
PROC: 0BB88ZX Excision of Left Upper Lobe Bronchus, Via Natural or Artificial Opening Endoscopic, Diagnostic (ICD-10-PCS; 2016-09-14)
PROC: 0B988ZX Drainage of Left Upper Lobe Bronchus, Via Natural or Artificial Opening Endoscopic, Diagnostic (ICD-10-PCS; 2016-09-14 12:00)
DX: I48.91 Unspecified atrial fibrillation (principal); J98.11 Atelectasis; J44.9 Chronic obstructive pulmonary disease, unspecified; I07.1 Rheumatic tricuspid insufficiency; N18.2 Chronic kidney disease, stage 2 (mild); D44.11 Neoplasm of uncertain behavior of right adrenal gland; D38.1 Neoplasm of uncertain behavior of trachea, bronchus and lung; I12.9 Hypertensive chronic kidney disease with stage 1 through stage 4 chronic kidney disease, or unspecified chronic kidney disease; E78.5 Hyperlipidemia, unspecified; K21.9 Gastro-esophageal reflux disease without esophagitis; M19.90 Unspecified osteoarthritis, unspecified site; N40.0 Benign prostatic hyperplasia without lower urinary tract symptoms; Z85.528 Personal history of other malignant neoplasm of kidney; Z90.5 Acquired absence of kidney; Z82.49 Family history of ischemic heart disease and other diseases of the circulatory system; Z82.5 Family history of asthma and other chronic lower respiratory diseases; Z80.1 Family history of malignant neoplasm of trachea, bronchus and lung; Z79.51 Long term (current) use of inhaled steroids; Z79.899 Other long term (current) drug therapy; Z87.891 Personal history of nicotine dependence; Z87.01 Personal history of pneumonia (recurrent); Z87.828 Personal history of other (healed) physical injury and trauma; Z83.2 Family history of diseases of the blood and blood-forming organs and certain disorders involving the immune mechanism
CPT/HCPCS: 31623; 31624; 31625; 71010; 80048; 84439; 84443; 85025; 85610; 85730; 88104; 88108; 88305; 89050; 93005; 93306; 94640

== ENCOUNTER → 2016-09-18 | Outpatient (CLI) | payer BC ==
--- NOTE | 2016-09-21 11:28 | PE ---
Nuclear medicine PET/CT HISTORY: Renal cell carcinoma, lung mass Patient received 13.6 mCi of F-18 FDG intravenously delayed scanning performed from the skull base to the mid thighs. Localization and attenuation correction CT scan was also performed. And correlated t o prior chest CT 26 August 2016, CT abdomen pelvis 29 January 2013 Neck and chest: Posterior nasopharyngeal soft tissues show some prominence, soft tissue mass measures approximately 16 mm in size, no associated hypermetabolic uptake. There is no evident adenopathy wit hin the neck. Persistent mediastinal adenopathy, left hilar adenopathy noted, soft tissue masses are present with s ome encroachment on the upper lobe bronchus, some narrowing is present, partial encasement. SUV measu res 10. Patient's lingular mass is irregularly shaped but shows an SUV 2. Right upper lobe mass poste riorly is subcentimeter in size and shows an SUV 2.6, left lower lobe nodule of the level of the post erior costophrenic sulcus on the left which measures 1 cm size shows no hypermetabolic uptake. Abdomen pelvis: The right adrenal mass measures approximately 4.8 x 2.7 cm and shows hypermetabolic u ptake, SUV 6.3. Liver lesion which show contrast enhancement on prior CT show no definite hypermetabo lic uptake , are not seen on noncontrast exam. Cystic foci are present one in the right lobe towards the inferior margin, 1 within the left lobe medially as well as lateral segment. Patient is status po st left nephrectomy. No retroperitoneal adenopathy. No pelvic adenopathy. No additional suspicious hy permetabolic uptake. IMPRESSION: Findings compatible with metastatic disease.
== END | disposition home or self-care (01) ==
LOC: RADPETMAIN 08:29
PROVIDERS: ATTEND Internal Medicine Critical Care Medicine
DX: R91.8 Other nonspecific abnormal finding of lung field (principal)
CPT/HCPCS: 78815; A9552